=== PATIENT | male | born 1960 ===

== ENCOUNTER 2020-08-18 13:06 | Inpatient (IN) ==
[2020-08-18] MEDS ORDERED: methylPREDNISolone 125 MG/2 ML VIAL IVP ONE (13:23)
[2020-08-18] MEDS ORDERED: Ipratropium/Albuterol Neb 3 ML IH ONE (13:23)
[2020-08-18 13:40] LABS: Red Cell Distribution Width 13.6 % (11.5-14.5)
[2020-08-18 13:42] LABS: Hematocrit 46.9 % (37.5-50.1); Mean Corpuscular Hemoglobin 31.3 pg (28.0-33.3); Mean Corpuscular Volume 97.9 fL (83.0-100.0); Platelet Count 208 K/mcL (140-400); Red Blood Count 4.79 M/mcL (4.19-5.50)
[2020-08-18 14:06] LABS: BUN/Creatinine Ratio 18 (6-26); Blood Urea Nitrogen 21 mg/dL (6-20); Calcium 9.7 mg/dL (8.6-10.3); Carbon Dioxide 22 mEq/L (23-29); Chloride 100 mEq/L (98-107); Glucose 193 mg/dL (70-105); Osmolality,Calculated 290 (280-300); Potassium 4.3 mEq/L (3.5-5.1); Sodium 136 mEq/L (136-145); Troponin I < 0.03 ng/mL (< 0.04); eGFR For African Americans > 60 (> 60); eGFR For Non-African Americans > 60 (> 60)
[2020-08-18 14:23] LABS: Monocytes # 2.5 K/mcL (0.0-1.3)
[2020-08-18 14:24] LABS: Platelet Estimate Normal (Normal)
[2020-08-18] MEDS ORDERED: cefTRIAXone 1,000 MG in Water for inj. (sterile) 10 ML IVP ONE (14:40)
[2020-08-18] MEDS: 0.9 % Sodium Chloride 1,000 ML IVC SCH ×3 (14:47→17:22)
[2020-08-18 14:53] LABS: Alanine Aminotransferase 21 Units/L (7-52); Albumin 4.3 g/dL (3.5-5.7); Albumin/Globulin Ratio 1.4 (1.1-2.2); Alkaline Phosphatase 61 Units/L (34-104); Aspartate Amino Transferase 13 Units/L (13-39); Bilirubin,Direct 0.3 mg/dL (0.0-0.2); Bilirubin,Indirect 0.7 mg/dL (0.0-1.0); Globulin 3.1 g/dL (2.4-3.5); Magnesium 1.8 mg/dL (1.6-2.6); Phosphorous 4.2 mg/dL (2.7-4.5); Total Protein 7.4 g/dL (6.4-8.9)
[2020-08-18 14:59] LABS: INR 1.3; Prothrombin Time 14.7 Seconds (9.4-12.1)
[2020-08-18] MEDS ORDERED: Azithromycin 500 MG in 0.9 % Sodium Chloride 250 ML IVPB ONE (15:00)
[2020-08-18 15:01] LABS: Activated Partial Thrombo Time 27.2 Seconds (26.0-36.0)
[2020-08-18] MEDS ORDERED: Naloxone 0.4 MG/ML INJ IVP PRN (15:22)
[2020-08-18] MEDS ORDERED: Ondansetron 4 MG/2 ML VIAL IVP PRN (15:22)
[2020-08-18] MEDS ORDERED: Albuterol 2.5 MG/3 ML NEBULIZER IH PRN (15:26)
[2020-08-18 15:56] LABS: Bilirubin,Urine Negative (Negative); Blood,Urine Negative (Negative); Clarity,Urine Clear (Clear); Color,Urine Light-Yellow (Yellow); Glucose,Urine (UA) Normal (Normal); Ketones,Urine Negative (Negative); Leukocyte Esterase,Urine Negative (Negative); Nitrite,Urine Negative (Negative); PH,Urine 5.5 pH Units (5.0-8.0); Protein,Urine Negative (Neg-Trace); Specific Gravity,Urine 1.013 (1.010-1.025); Urobilinogen,Urine Normal (Normal)
[2020-08-18] MEDS: Nicotine 21 MG PATCH.TD24 TD SCH (17:23)
[2020-08-18] MEDS: *HR* Heparin 5,000 UNIT/ML VIAL SQ SCH (17:23)
[2020-08-18] MEDS: MethylPREDNISolone 40 MG/ML VIAL IVP SCH (23:39)
[2020-08-19 01:07] LABS: Red Cell Distribution Width 13.7 % (11.5-14.5)
[2020-08-19 01:08] LABS: Hematocrit 41.3 % (37.5-50.1); Hemoglobin 13.4 g/dL (12.9-16.9); Mean Corpuscular HGB Conc 32.4 g/dL (31.6-35.5); Mean Corpuscular Hemoglobin 31.9 pg (28.0-33.3); Mean Corpuscular Volume 98.3 fL (83.0-100.0); Platelet Count 192 K/mcL (140-400); White Blood Count 27.1 K/mcL (4.3-11.1)
[2020-08-19 01:24] LABS: BUN/Creatinine Ratio 25 (6-26); Blood Urea Nitrogen 17 mg/dL (6-20); Calcium 8.7 mg/dL (8.6-10.3); Carbon Dioxide 22 mEq/L (23-29); Chloride 109 mEq/L (98-107); Glucose 230 mg/dL (70-105); Osmolality,Calculated 295 (280-300); Potassium 3.8 mEq/L (3.5-5.1); Sodium 138 mEq/L (136-145); eGFR For African Americans > 60 (> 60); eGFR For Non-African Americans > 60 (> 60)
[2020-08-19 01:40] LABS: Lymphocytes # 2.2 K/mcL (0.6-4.6); Monocytes # 1.1 K/mcL (0.0-1.3); Neutrophils # 22.8 K/mcL (1.6-8.9); Platelet Estimate Normal (Normal)
[2020-08-19] MEDS: 0.9 % Sodium Chloride 1,000 ML IVC SCH (03:09)
[2020-08-19] MEDS: *HR* Heparin 5,000 UNIT/ML VIAL SQ SCH ×2 (05:09→17:40)
[2020-08-19] MEDS: MethylPREDNISolone 40 MG/ML VIAL IVP SCH ×3 (05:15→17:39)
[2020-08-19 06:56] LABS: Acinetobacter baumannii by PCR Not Detected (Not Detect); Candida albicans by PCR Not Detected (Not Detect); Candida glabrata by PCR Not Detected (Not Detect); Candida krusei by PCR Not Detected (Not Detect); Candida parapsilosis by PCR Not Detected (Not Detect); Candida tropicalis by PCR Not Detected (Not Detect); Enterobacter cloacae Cmplx PCR Not Detected (Not Detect); Enterobacteriaceae by PCR Not Detected (Not Detect); Enterococcus by PCR Not Detected (Not Detect); Escherichia coli by PCR Not Detected (Not Detect); Klebsiella oxytoca by PCR Not Detected (Not Detect); Klebsiella pneumoniae by PCR Not Detected (Not Detect); Proteus by PCR Not Detected (Not Detect); Pseudomonas aeruginosa by PCR Not Detected (Not Detect); Serratia marcescens by PCR Not Detected (Not Detect); Staphylococcus aureus by PCR Not Detected (Not Detect); Staphylococcus by PCR Not Detected (Not Detect); Streptococcus agalactiae(B)PCR Not Detected (Not Detect); Streptococcus pneumoniae PCR DETECTED (Not Detect); Streptococcus pyogenes (A) PCR Not Detected (Not Detect); mecA Methicillin-Resist Gene Not Detected (Not Detect); vanA/B Vancomycin-Resist Genes Not Detected (Not Detect)
[2020-08-19 06:57] LABS: Streptococcus by PCR Not Detected (Not Detect)
[2020-08-19] MEDS ORDERED: cefTRIAXone 2,000 MG in 0.9 % Sodium Chloride Mini Bag 100 ML IVPB SCH (08:00)
[2020-08-19] MEDS: Azithromycin 500 MG in 0.9 % Sodium Chloride 250 ML IVPB SCH (08:39)
[2020-08-19] MEDS: Nicotine 21 MG PATCH.TD24 TD SCH (08:40)
[2020-08-19] MEDS: cefTRIAXone 2,000 MG in Water for inj. (sterile) 20 ML IVP SCH (08:40)
[2020-08-19] MEDS ORDERED: cefTRIAXone 1,000 MG in Water for inj. (sterile) 10 ML IVP SCH (09:00)
[2020-08-19] MEDS: Acetaminophen 325 MG TABLET PO PRN ×2 (11:17→20:12)
[2020-08-19] MEDS: Budesonide/Formoterol 160/4.5 1 PUFF INH IH SCH (20:12)
[2020-08-20] MEDS: MethylPREDNISolone 40 MG/ML VIAL IVP SCH ×3 (00:51→21:10)
[2020-08-20 02:28] LABS: Hematocrit 40.7 % (37.5-50.1); Mean Corpuscular HGB Conc 31.9 g/dL (31.6-35.5); Mean Corpuscular Hemoglobin 31.5 pg (28.0-33.3); Mean Corpuscular Volume 98.5 fL (83.0-100.0); Mean Platelet Volume 10.7 fL (9.4-12.4); Platelet Count 209 K/mcL (140-400); Red Blood Count 4.13 M/mcL (4.19-5.50); Red Cell Distribution Width 13.5 % (11.5-14.5); White Blood Count 25.9 K/mcL (4.3-11.1)
[2020-08-20 02:41] LABS: Alanine Aminotransferase 17 Units/L (7-52); Albumin 3.4 g/dL (3.5-5.7); Albumin/Globulin Ratio 1.1 (1.1-2.2); Alkaline Phosphatase 48 Units/L (34-104); Aspartate Amino Transferase 11 Units/L (13-39); BUN/Creatinine Ratio 31 (6-26); Bilirubin,Total 0.3 mg/dL (0.3-1.0); Blood Urea Nitrogen 20 mg/dL (6-20); Calcium 9.2 mg/dL (8.6-10.3); Carbon Dioxide 25 mEq/L (23-29); Chloride 106 mEq/L (98-107); Glucose 256 mg/dL (70-105); Osmolality,Calculated 301 (280-300); Potassium 3.7 mEq/L (3.5-5.1); Sodium 140 mEq/L (136-145); Total Protein 6.4 g/dL (6.4-8.9); eGFR For African Americans > 60 (> 60); eGFR For Non-African Americans > 60 (> 60)
[2020-08-20 02:49] LABS: Anisocytosis 1+ (Not Present); Large Platelets Present (Not Present); Neutrophils # 24.9 K/mcL (1.6-8.9); Platelet Estimate Normal (Normal)
[2020-08-20 02:50] LABS: Polychromasia 1+ (Not Present)
[2020-08-20] MEDS: *HR* Heparin 5,000 UNIT/ML VIAL SQ SCH ×2 (06:13→17:34)
[2020-08-20] MEDS: Budesonide/Formoterol 160/4.5 1 PUFF INH IH SCH ×2 (07:28→21:39)
[2020-08-20] MEDS: Azithromycin 500 MG in 0.9 % Sodium Chloride 250 ML IVPB SCH (09:10)
[2020-08-20] MEDS: Nicotine 21 MG PATCH.TD24 TD SCH (09:10)
[2020-08-20] MEDS: cefTRIAXone 2,000 MG in Water for inj. (sterile) 20 ML IVP SCH (09:11)
[2020-08-20] MEDS: Acetaminophen 325 MG TABLET PO PRN (21:09)
[2020-08-21 00:59] LABS: Basophils # 0.1 K/mcL (0.0-0.2); Basophils % 0.3 %; Hematocrit 40.4 % (37.5-50.1); Hemoglobin 12.9 g/dL (12.9-16.9); Immature Granulocytes % 2.9 % (0-4); Lymphocytes # 0.8 K/mcL (0.6-4.6); Lymphocytes % 4.4 %; Mean Corpuscular HGB Conc 31.9 g/dL (31.6-35.5); Mean Corpuscular Hemoglobin 30.5 pg (28.0-33.3); Mean Corpuscular Volume 95.5 fL (83.0-100.0); Mean Platelet Volume 10.4 fL (9.4-12.4); Monocytes # 0.6 K/mcL (0.0-1.3); Neutrophils # 16.3 K/mcL (1.6-8.9); Platelet Count 229 K/mcL (140-400); Red Blood Count 4.23 M/mcL (4.19-5.50); Red Cell Distribution Width 13.4 % (11.5-14.5); Segmented Neutrophils % 89.4 %; White Blood Count 18.3 K/mcL (4.3-11.1)
[2020-08-21 01:18] LABS: BUN/Creatinine Ratio 36 (6-26); Blood Urea Nitrogen 25 mg/dL (6-20); Calcium 9.1 mg/dL (8.6-10.3); Carbon Dioxide 25 mEq/L (23-29); Chloride 104 mEq/L (98-107); Glucose 344 mg/dL (70-105); Osmolality,Calculated 302 (280-300); Potassium 3.8 mEq/L (3.5-5.1); Sodium 137 mEq/L (136-145); eGFR For African Americans > 60 (> 60); eGFR For Non-African Americans > 60 (> 60)
[2020-08-21] MEDS: *HR* Heparin 5,000 UNIT/ML VIAL SQ SCH (05:26)
[2020-08-21 07:14] VITALS: BP 150/98
[2020-08-21] MEDS ORDERED: Azithromycin 250 MG TABLET PO SCH (09:00)
[2020-08-21] MEDS: Budesonide/Formoterol 160/4.5 1 PUFF INH IH SCH (09:21)
[2020-08-21] MEDS: MethylPREDNISolone 40 MG/ML VIAL IVP SCH (09:35)
[2020-08-21] MEDS: cefTRIAXone 2,000 MG in Water for inj. (sterile) 20 ML IVP SCH (09:35)
[2020-08-21 11:16] LABS: Estimated Average Glucose 160 mg/dl; Hemoglobin A1C 7.2 %
== END 2020-08-21 10:09 | disposition home or self-care (01) | DRG 871 ==
LOC: 3ANU 13:06 → EMEROOARM 13:06 → SUATTDRO 15:09 → 3ANU 16:26
PROVIDERS: ADMIT Internal Medicine; ATTEND Internal Medicine